=== PATIENT | male | born 1970 | race Caucasian/White ===

== ENCOUNTER 2018-08-31 12:41 | Observation (INO) | payer BC ==
[2018-08-31 13:23] LABS: Bilirubin Negative (Negative); Blood, Urine Negative (Negative); Clarity CLEAR (Clear); Glucose, Urine (Dipstick) Negative (Negative); Leukocyte Negative (Negative); Nitrite Negative (Negative); Protein, Urine (Dipstick) Negative (Neg-Trace); Specific Gravity, Urine 1.022 (1.002-1.036); Urobilinogen 0.2 mg/dL (0.2-1.0); pH, Urine 5.5 (5.0-9.0)
[2018-08-31 13:23] LABS: #Basophils 0.1 thou/uL (0.0-0.2); #Eosinphils 0.1 thou/uL (0.0-0.7); #Lymphocytes 1.5 thou/uL (1.20-3.40); #Monocytes 0.4 thou/uL (0.11-0.59); #Neutrophils 5.5 thou/uL (1.40-6.50); %Basophils 1.1 % (0.0-1.0); %Eosinophils 1.1 % (0.0-10.0); %Lymphocytes 19.7 % (21.0-51.0); %Monocytes 5.1 % (0.0-10.0); %Neutrophils 73.1 % (42.0-75.0); Hemoglobin 15.3 g/dL (14.0-18.0); Mean Corpuscular HGB CONC 35.1 g/dL (32.0-36.0); Mean Corpuscular Hemoglobin 31.1 pg (27.0-31.0); Mean Corpuscular Volume 88.5 fL (78.0-98.0); Platelet Count 311 thou/uL (130-400); RBC Distribution Width 11.6 % (11.5-14.5); Red Blood Cell (RBC) Count 4.93 mill/uL (4.70-6.10); White Blood Cell (WBC) Count 7.5 thou/uL (4.8-10.8)
[2018-08-31 13:40] LABS: ALT (SGPT) 47 U/L (8-55); AST (SGOT) 34 U/L (5-34); Albumin 4.9 g/dL (3.5-5.0); Alkaline Phosphatase 100 U/L (40-150); Anion Gap 15 mmol/L (10-20); BUN (Urea Nitrogen) 16 mg/dL (8.9-20.6); Bilirubin, Total 0.9 mg/dL (0.2-1.2); CK (CPK) 143 U/L (30-200); Calc. Creatinine Clearance 0 mL/min (70-130); Calcium 10.2 mg/dL (7.8-10.44); Carbon Dioxide 25 mmol/L (22-29); Chloride 101 mmol/L (98-107); Estimated GFR-MDRD 71; Globulin 3.2 g/dL (2.4-3.5); Glucose 145 mg/dL (70-105); Lipase 15 U/L (8-78); Protein, Total 8.1 g/dL (6.0-8.3); Sodium 137 mmol/L (136-145)
--- NOTE | 2018-08-31 14:05 | RAD ---
CHEST 1 VIEW: Date: 08/31/18 INDICATION: History of intermittent chest pain. COMPARISON: None. FINDINGS: Lungs are clear. Cardiomediastinal silhouette is within normal limits. No acute osseous abnormality i s evident. IMPRESSION: No acute cardiopulmonary abnormality. POS: EDWAR
[2018-08-31] MEDS ORDERED: Nitroglycerin 2% Ointment 1 INCH/1 GM Packet ONE (15:18)
[2018-08-31] MEDS ORDERED: Acetaminophen 325 MG TAB PO PRN (19:15)
[2018-08-31] MEDS ORDERED: Acetaminophen 650 MG Suppository PR PRN (19:15)
[2018-08-31] MEDS ORDERED: HYDROcodone/Acetaminophen 5/325 mg Tablet PO PRN (19:15)
[2018-08-31 19:19] VITALS: BMI 27.1
[2018-08-31] MEDS ORDERED: Enoxaparin Sodium 40 MG/0.4 ML SYRINGE SC SCH (19:30)
[2018-08-31] MEDS: Nitroglycerin 2% Ointment 1 INCH/1 GM Packet TOP SCH (21:06)
[2018-08-31] MEDS: Metoprolol Tartrate 25 MG TAB PO SCH (21:06)
--- NOTE | 2018-08-31 22:44 | HP ---
PRIMARY CARE PHYSICIAN: Joe Mckinney DO PRIMARY PLATE FORMER: [facility] in [place]. CHIEF COMPLAINT: Chest pressure. HISTORY OF PRESENT ILLNESS: Mr. Roberto is a pleasant 47-year-old male with history of gout, history of Txqzx-Cqfcrkitd-Ntclq, status post ablation in 2001, who presents to the Emergency Department with complaints of chest pain. He has been having on and off chest pressure for some time and, actually on 08/24, went to [place] to see his travel rn and underwent an EKG treadmill stress test. He completed just over 10 minutes on the treadmill, was told there were no significant changes and was sent home. His high sensitivity C-reactive protein did come back at 6.2, so his travel rn was wanting to get him set up for a 64-slice cardiac CT angiogram, but they held it for insurance reasons and it is not scheduled to happen for another week or two. The patient developed subtle chest pressure, present at the left side of his chest, that seemed to be worse with some activity, but also was coming and going without activity. He has nitroglycerin but he was afraid to take any, and so talked to his travel rn who told him to come to the ER for evaluation. Workup here showed him to initially be in the heart rate at the one-teens to 120s, but slowed back down to his normal in the 80s. He has not had any further chest pressure. No shortness of breath. No diaphoresis. No sweats. No nausea or vomiting. Labs here have been normal and we were subsequently called for admission. PAST MEDICAL HISTORY: 1. Foqxo-Piopuukxh-Ubqyw, status post ablation in 1999. 2. "Leaky heart valve.". PAST SURGICAL HISTORY: Includes a cardiac ablation in 1999. HOME MEDICATIONS: 1. Lipitor 80 mg p.o. at bedtime. 2. Lisinopril 5 mg p.o. q.a.m. 3. Zetia 10 mg p.o. q.a.m. 4. Prilosec OTC 40 mg p.o. b.i.d. 5. Aspirin 81 mg p.o. b.i.d. 6. Indomethacin 50 mg p.o. b.i.d. p.r.n. pain. 7. Colchicine 0.6 mg p.o. q.a.m. p.r.n. gout flare. ALLERGIES: NKDA. FAMILY HISTORY: Negative for clotting or bleeding disorders, no immune dysfunction, no premature coronary artery disease. SOCIAL HISTORY: Negative for habits x3. He is , monogamous. . No recent travel. No imported foods. No contact. REVIEW OF SYSTEMS: All systems reviewed and negative except as stated in the HPI. PHYSICAL EXAMINATION: VITAL SIGNS: Temperature 98.3, pulse 98, blood pressure 172/99, respiratory rate 20, and sating 100% on room air. GENERAL: He is awake, he is alert, he is oriented x3. Well-developed, well-nourished white male, appears to be in no acute distress. HEENT: Normocephalic, atraumatic. Pupils equal, round, and reactive to light bilaterally. Mucous membranes are moist. No visible lesions. No thrush. NECK: Supple. No lymphadenopathy, JVD, or thyromegaly. Normal carotid upstrokes without bruit. LUNGS: Clear. No wheezes, no rales, no rhonchi. Good air movement. Symmetric chest excursion. ABDOMEN: Soft, nontender, nondistended. No masses or organomegaly. EXTREMITIES: Showed no signs of clubbing. No edema. He has 2+ distal dorsalis pedis and posterior tibial pulses. SKIN: Warm, moist, and well perfused. There is no rash or lesions. MUSCULOSKELETAL: Normal to inspection. Large joints appear normal. There is no evidence of inflammation or palpable effusion. NEUROLOGIC: Cranial nerves 2 through 12 grossly intact. He has no focal neurologic deficits. LABORATORY DATA: CBC showed a white count of 7.5, hemoglobin is 15.3, hematocrit 43.7, and platelet count is 311,000 and there is a normal differential. CMP was completely within normal limits. Glucose 145, troponin I is less than 0.010 and BNP was less than 10. Urinalysis was normal and completely within normal limits. Chest x-ray showed no acute cardiopulmonary disease. EKG shows sinus tachycardia. He is currently into a normal sinus rhythm. ASSESSMENT AND PLAN: 1. Chest pain. The patient is not low risk. We will place him in observation. Consider cardiac biomarkers; if negative, set him up for nuclear stress test in the morning. Request Cardiology to evaluate him. 2. Hyperlipidemia. Continue his Lipitor. 3. Hypertension. Continue his lisinopril. We will add in metoprolol 25 mg p.o. b.i.d. for now. 4. History of Qjcjy-Ahbjfbkjl-Ywrji, status post ablation. No current recurrence. Job ID: [id number]
[2018-09-01] MEDS: Nitroglycerin 2% Ointment 1 INCH/1 GM Packet TOP SCH ×2 (06:57→14:39)
[2018-09-01] MEDS: Metoprolol Tartrate 25 MG TAB PO SCH (06:57)
[2018-09-01] MEDS ORDERED: Enoxaparin Sodium 40 MG/0.4 ML SYRINGE SC SCH (09:00)
[2018-09-01] MEDS ORDERED: ADENOSINE 60 MG/20 ML VIAL ONE (09:53)
[2018-09-01 12:02] VITALS: BP 168/70; TEMP 98
--- NOTE | 2018-09-01 13:58 | NM ---
NUCLEAR MEDICINE CARDIAC MYOCARDIAL PERFUSION SPECT EJECTION FRACTION STUDY WALL MOTION CINE: Date: 09/01/18 HISTORY: 47-year-old male status post cardiac ablation for Vxqje-Pwaqyftwx-Nujun syndrome, hypertension, and f amily history of coronary artery disease, presents with chest pain. TECHNIQUE: Number of days: 1 Rest study: Tc99m sestamibi (Cardiolite) dose: 11.0 mCi Pharmacologic stress: adenosine dose: 52.1 mg Stress study: Tc99m sestamibi (Cardiolite) dose: 31.0 mCi FINDINGS: CARDIAC (MYOCARDIAL PERFUSION) SPECT There are no reversible myocardial perfusion defects. EJECTION FRACTION STUDY EF = 62% WALL MOTION CINE Normal. IMPRESSION: No evidence of reversible ischemia. BUBBA Leach POS: SHADI
--- NOTE | 2018-09-01 14:37 | DIS ---
DATE OF ADMISSION: 08/31/2018 DATE OF DISCHARGE: 09/01/2018 PRIMARY CARE PHYSICIAN: Joe Mckinney, DISCHARGE DIAGNOSES: 1. Chest pain. 2. Coronary artery disease. 3. Hypertension. 4. Hyperlipidemia. 5. History of Ofcmp-Frtlukfbf-Qlhvf in the past, status post ablation. CONSULTATIONS: None. PROCEDURE: Nuclear stress test 09/01/2018. Negative for reversible ischemia. HISTORY AND PHYSICAL: Mr. Roberto is a 47-year-old gentleman who presented to the outside residential plumber and underwent a treadmill stress test on 08/24. EKG was unchanged. He was able to do just over 10 minutes and had no symptoms. He did have an elevated high sensitivity CRP, they were going to scheduling him for a 64-slice CT angio of the heart at [facility]. The patient developed chest pain as a pressure sensation and was in the emergency department for evaluation after his residential plumber told him to get evaluated. In the ER, he had negative biomarkers, we were called for admission. HOSPITAL COURSE: The patient was seen and examined by me in the ER. He was placed on observation. His cardiac biomarkers were obtained that are all completely negative below the detectable limit for troponin. He underwent nuclear stress test that showed no reversible ischemia, was stable for discharge with outpatient followup with residential plumber. PHYSICAL EXAMINATION: The patient was seen and examined on the day of discharge. Discharge plan and disposition discussed with the patient [id number] at the bedside. DISCHARGE MEDICATIONS: Same as admission. Please see the medicine discharge reconciliation sheet. DISCHARGE ACTIVITY: Per cardiopulmonary limits. DISCHARGE DIET: Heart healthy diet recommended. DISCHARGE CONDITION: Stable. DISPOSITION: Discharged home via private vehicle. FOLLOWUP APPOINTMENTS: 1. Primary care physician in 1 week. 2. Metal Flow Coordinator as described. Job ID: [id number]
--- NOTE | 2018-09-05 21:59 | EKG ---
Test Reason : Blood Pressure : / mmHG Vent. Rate : 123 BPM Atrial Rate : 123 BPM P-R Int : 128 ms QRS Dur : 104 ms QT Int : 322 ms P-R-T Axes : 050 009 055 degrees QTc Int : 460 ms Sinus tachycardia Possible Left atrial enlargement Incomplete right bundle branch block Borderline ECG Confirmed by CHRIS STEWART DO ([id number]), clinical editor JARRET JULIO ([id number] on 09/05/2018 9:58:51 PM Referred By: Confirmed By:CHRIS STEWART DO
== END 2018-09-01 14:44 | disposition home or self-care (01) ==
LOC: ERS 12:41 → ERHOLD 15:55 → 2SW 18:53
PROVIDERS: ADMIT Internal Medicine Infectious Disease; ATTEND Internal Medicine Infectious Disease
DX: R07.89 Other chest pain (principal); I10 Essential (primary) hypertension; M10.9 Gout, unspecified; I25.10 Atherosclerotic heart disease of native coronary artery without angina pectoris; E78.5 Hyperlipidemia, unspecified; Z79.82 Long term (current) use of aspirin; Z79.899 Other long term (current) drug therapy; Z98.890 Other specified postprocedural states
CPT/HCPCS: 36415; 71045; 78452; 80053; 81003; 82550; 83690; 83880; 84484; 85025; 93005; 93017; 94760; 96372; A9500; G0378; J0153; J1650

== ENCOUNTER 2020-12-14 11:35 | Emergency (ER) | payer BC ==
[2020-12-14 13:02] LABS: #Basophils 0.1 thou/uL (0.0-0.2); #Eosinphils 0.2 thou/uL (0.0-0.7); #Lymphocytes 1.4 thou/uL (1.20-3.40); #Monocytes 0.6 thou/uL (0.11-0.59); #Neutrophils 7.1 thou/uL (1.40-6.50); %Basophils 0.8 % (0.0-1.0); %Eosinophils 2.2 % (0.0-10.0); %Lymphocytes 14.6 % (21.0-51.0); %Monocytes 6.7 % (0.0-10.0); %Neutrophils 75.7 % (42.0-75.0); Hemoglobin 12.9 g/dL (14.0-18.0); Mean Corpuscular Hemoglobin 31.6 pg (27.0-31.0); Mean Corpuscular Volume 92.9 fL (78.0-98.0); Mean Platelet Volume 7.1 fL (7.4-10.4); Platelet Count 260 thou/uL (130-400); RBC Distribution Width 11.8 % (11.5-14.5); Red Blood Cell (RBC) Count 4.07 mill/uL (4.70-6.10); White Blood Cell (WBC) Count 9.4 thou/uL (4.8-10.8)
[2020-12-14] MEDS ORDERED: cefTRIAXone\\ROCEPHIN 2 GM VIAL ONE (13:13)
[2020-12-14 13:27] LABS: ALT (SGPT) 65 U/L (8-55); AST (SGOT) 57 U/L (5-34); Albumin 4.1 g/dL (3.5-5.0); Alkaline Phosphatase 139 U/L (40-110); Anion Gap 14 mmol/L (10-20); BUN (Urea Nitrogen) 17 mg/dL (8.9-20.6); Bilirubin, Total 0.4 mg/dL (0.2-1.2); Calc. Creatinine Clearance 0 mL/min (70-130); Carbon Dioxide 23 mmol/L (22-29); Chloride 102 mmol/L (98-107); Globulin 3.3 g/dL (2.4-3.5); Glucose 120 mg/dL (70-105); Potassium 4.1 mmol/L (3.5-5.1); Protein, Total 7.4 g/dL (6.0-8.3); Sodium 135 mmol/L (136-145)
== END 2020-12-14 14:22 | disposition home or self-care (01) ==
LOC: ERS 11:35
DX: L02.811 Cutaneous abscess of head [any part, except face] (principal); Z79.899 Other long term (current) drug therapy; Z79.82 Long term (current) use of aspirin
CPT/HCPCS: 36415; 70450; 80053; 85025; 87040; 87070; 87077; 87186; 87205; 96365; J0696

== ENCOUNTER 2022-04-04 08:33 | Outpatient (CLI) | payer BC | END 2022-04-04 08:34 | disposition home or self-care (01) | LOC: BICRAD 08:33 | PROVIDERS: ATTEND Family Medicine | DX: R07.81 Pleurodynia (principal) ==